=== PATIENT | female | born 1940 | race Caucasian/White ===

== ENCOUNTER 2021-10-10 21:27 | Inpatient (IN) | payer MEDICARE, BC ==
[~2021-10-10] VITALS: Ht 170.2 cm; Wt 65.8 kg
[~2021-10-10 21:27] MED LIST: ACET-868 PO; ACID1TAB12 PO; ALPR0.5T8 PO; ASPI-1169 PO; DONE5TAB34 PO; OMEP40CA21 PO; SIMV-49 PO; ZOLP5TAB8 PO
--- NOTE | 2021-10-10 21:32 | NUR ---
PT BIBRA FROM HOME C/O VOMITTING & DIARRHEA X2 HOURS AND TACHYCARDIA RATE: 186. PT A/OX4. TOLERATING R/A WELL WITH NO SOB. CONNECTED PT TO POX AND MONITOR.
[2021-10-10] MEDS ORDERED: ONDANSETRON HCL/PF 4 MG/2 ML VIAL ONE (21:45)
--- NOTE | 2021-10-10 21:50 | NUR ---
R HAND #20G S/L; PATENT AND INTACT. BLOOD COLLECTED AND SENT TO LAB
[2021-10-10] MEDS ORDERED: IV NS 0.9% 1,000 ML BAG IV ONE ×2 (22:00→22:30)
[2021-10-10] MEDS ORDERED: ONDANSETRON HCL/PF 4 MG/2 ML VIAL IVP ONE (22:00)
[2021-10-10 22:18] LABS: BASOPHILS % (AUTO) 0.3 % (0.0-2.0); EOSINOPHILS % (AUTO) 0.7 % (0.0-6.0); HEMATOCRIT 41 % (33-45); LYMPHOCYTES # (AUTO) 1.1 K/uL (0.8-4.8); LYMPHOCYTES % (AUTO) 9.9 % (20.0-44.0); MEAN CORPUSCULAR HGB CONC 32 g/dl (31.0-36.0); MEAN CORPUSCULAR VOLUME 84 fL (82-100); MONOCYTES # (AUTO) 0.5 K/uL (0.1-1.30); MONOCYTES % (AUTO) 4.9 % (2.0-12.0); NEUTROPHILS % (AUTO) 84.2 % (43.0-81.0); PLATELET COUNT (AUTO) 282 K/uL (150-450); RED BLOOD CELL COUNT(AUTO) 4.85 MIL/uL (4.0-5.2); WHITE BLOOD COUNT (AUTO) 10.7 K/uL (4.3-11.0)
[2021-10-10] MEDS ORDERED: ADENOSINE 6 MG/2 ML VIAL ONE ×2 (22:19→22:24)
[2021-10-10] MEDS ORDERED: AMIODARONE 150 MG in IV D5W 100 ML IV ONE (22:30)
[2021-10-10] MEDS ORDERED: ADENOSINE 6 MG/2 ML VIAL IVP ONE ×2 (22:30)
[2021-10-10] MEDS ORDERED: AMIODARONE 450 MG in IV D5W 241 ML IV PRN (22:30)
[2021-10-10] MEDS ORDERED: AMIODARONE 150 MG/3 ML VIAL IV ONE ×3 (22:33→23:12)
--- NOTE | 2021-10-10 22:40 | NUR ---
URINE COLLECTED AND SENT TO LAB
--- NOTE | 2021-10-10 22:52 | NUR ---
COVID ANTIGEN SWAB COLLECTED AND SENT TO LAB
[2021-10-10] MEDS ORDERED: ONDANSETRON HCL/PF 4 MG/2 ML VIAL IV ONE (23:00)
[2021-10-10 23:05] LABS: ALANINE AMINOTRANSFERASE 40 U/L (12-78); ALKALINE PHOSPHATASE 83 U/L (46-116); ASPARTATE AMINOTRANSFERASE 42 U/L (15-37); BILIRUBIN,DIRECT 0.1 mg/dL (0.0-0.2); CALCIUM, SERUM 8.9 mg/dL (8.5-10.1); CARBON DIOXIDE 20 mmol/L (21-32); CHLORIDE 103 mmol/L (98-107); CREATININE 0.9 mg/dL (0.6-1.3); GLUCOSE 120 mg/dL (74-106); LIPASE 72 U/L (73-393); POTASSIUM 4.1 mmol/L (3.5-5.1); SODIUM SERUM 138 mmol/L (136-145); TOTAL PROTEIN, SERUM 7.3 g/dL (6.4-8.2); UREA NITROGEN, BLOOD 10 mg/dL (7-18)
[2021-10-10 23:20] LABS: ALBUMIN 3.2 g/dL (3.4-5.0); BILIRUBIN,TOTAL 0.4 mg/dL (0.2-1.0)
--- NOTE | 2021-10-10 23:22 | NUR ---
HR 95; PER DR SRINIVASAN HOLD AMIO IV DRIP FOR NOW.
--- NOTE | 2021-10-10 23:23 | NUR ---
S/P AMIO IVP ORDERED. HR 95. PER DR. SRINIVASAN PT IS TELE. NOTIFIED RN EDI ARCHITECT
[2021-10-10 23:25] LABS: BILIRUBIN,URINE NEGATIVE (NEGATIVE); COLOR,URINE YELLOW (YELLOW); LEUKOCYTE ESTERASE ,URINE NEGATIVE (NEGATIVE); NITRITE, URINE NEGATIVE (NEGATIVE); PROTEIN,URINE 100 mg/dl (NEGATIVE); UGLUCOSE NEGATIVE (NEGATIVE); UROBILINOGEN,URINE 0.2 EU/dL (0.2)
[2021-10-10 23:41] LABS: BACTERIA,URINE Few /HPF (None Seen); CALCIUM OXALATE CRYSTALS,UR Many /HPF (None Seen); RBC,URINE 0-2 /HPF (0-2); SQUAMOUS EPITHELIAL CELL,UR Few /HPF (None Seen)
[2021-10-10 23:42] LABS: COARSE GRANULAR CASTS,URINE Few /LPF (None Seen); MUCUS,URINE Few /LPF (None Seen)
[2021-10-11] MEDS ORDERED: MAGNESIUM HYDROXIDE 30 ML UDC PO PRN (02:00)
[2021-10-11] MEDS ORDERED: MAG HYDROX/AL HYDROX/SIMETH 30 ML UDC PO PRN (02:00)
[2021-10-11] MEDS ORDERED: Z GUARD REMEDY 4 OZ OINT TP PRN (02:00)
[2021-10-11] MEDS ORDERED: ACETAMINOPHEN 325 MG TABLET PO PRN (02:00)
[2021-10-11] MEDS ORDERED: ZOLPIDEM TARTRATE 5 MG TABLET PO PRN (02:00)
[2021-10-11] MEDS ORDERED: ONDANSETRON HCL/PF 4 MG/2 ML VIAL IVP PRN (02:00)
--- NOTE | 2021-10-11 04:40 | NUR ---
PTY IN BED RESTING WITH EYES CLOSE. BREATHING EVEN AND UNLABORED. NO DISTRESS
[2021-10-11 05:00] LABS: BASOPHILS % (AUTO) 0.4 % (0.0-2.0); EOSINOPHILS % (AUTO) 0.2 % (0.0-6.0); HEMATOCRIT 35 % (33-45); HEMOGLOBIN 11.2 g/dL (11.5-14.8); LYMPHOCYTES # (AUTO) 0.7 K/uL (0.8-4.8); LYMPHOCYTES % (AUTO) 10.9 % (20.0-44.0); MEAN CORPUSCULAR HGB CONC 32 g/dl (31.0-36.0); MEAN CORPUSCULAR VOLUME 83 fL (82-100); MONOCYTES # (AUTO) 0.3 K/uL (0.1-1.30); MONOCYTES % (AUTO) 4.1 % (2.0-12.0); NEUTROPHILS # (AUTO) 5.4 K/uL (1.8-8.9); NEUTROPHILS % (AUTO) 84.4 % (43.0-81.0); PLATELET COUNT (AUTO) 257 K/uL (150-450); RED BLOOD CELL COUNT(AUTO) 4.21 MIL/uL (4.0-5.2); WHITE BLOOD COUNT (AUTO) 6.4 K/uL (4.3-11.0)
[2021-10-11 05:34] LABS: ALANINE AMINOTRANSFERASE 37 U/L (12-78); ALBUMIN 2.9 g/dL (3.4-5.0); ALKALINE PHOSPHATASE 71 U/L (46-116); ASPARTATE AMINOTRANSFERASE 26 U/L (15-37); BILIRUBIN,TOTAL 0.5 mg/dL (0.2-1.0); CALCIUM, SERUM 7.9 mg/dL (8.5-10.1); CARBON DIOXIDE 24 mmol/L (21-32); CHLORIDE 105 mmol/L (98-107); CREATININE 0.8 mg/dL (0.6-1.3); GLUCOSE 125 mg/dL (74-106); PHOSPHORUS 3.6 mg/dL (2.5-4.9); POTASSIUM 4.1 mmol/L (3.5-5.1); SODIUM SERUM 140 mmol/L (136-145); TOTAL PROTEIN, SERUM 6.4 g/dL (6.4-8.2); UREA NITROGEN, BLOOD 19 mg/dL (7-18)
--- NOTE | 2021-10-11 06:49 | NUR ---
DR COREA IS AT BEDSIDE. TROPONIN OF 0.[address] COREA WELL
[2021-10-11] MEDS ORDERED: MEMA5TAB42 PO (06:52)
[2021-10-11] MEDS ORDERED: PENT400T17 PO (06:52)
[2021-10-11] MEDS ORDERED: METO25TA20 PO (06:52)
[2021-10-11] MEDS ORDERED: CYCL5TAB PO (06:52)
[2021-10-11] MEDS ORDERED: FURO20TA4 PO (06:52)
[2021-10-11] MEDS ORDERED: APIX5TAB PO (06:52)
[2021-10-11] MEDS ORDERED: LEVO100T9 PO (06:52)
[2021-10-11] MEDS ORDERED: LORA-258 PO (06:56)
[2021-10-11] MEDS ORDERED: PANTOPRAZOLE 40 MG TABLET.DR PO SCH (07:30)
[2021-10-11] MEDS ORDERED: ENOXAPARIN SODIUM 40 MG/0.4 ML DISP.SYRIN SQ SCH (08:00)
[2021-10-11] MEDS ORDERED: PANTOPRAZOLE 40 MG TABLET.DR PO ONE (08:18)
[2021-10-11] MEDS ORDERED: ENOXAPARIN SODIUM 40 MG/0.4 ML DISP.SYRIN SQ ONE (08:18)
[2021-10-11] MEDS: PANTOPRAZOLE 40 MG TABLET.DR PO SCH (08:20)
[2021-10-11] MEDS ORDERED: NITROGLYCERIN 0.4 MG/TAB BOTTLE ONE (09:38)
[2021-10-11] MEDS ORDERED: METOPROLOL TARTRATE INJ 5 MG/5 ML AMPUL ONE (09:38)
[2021-10-11] MEDS ORDERED: IOHEXOL-350 100 ML VIAL IV ONE (09:38)
[2021-10-11] MEDS ORDERED: IV NS 0.9% 250 ML IV ONE (09:39)
[2021-10-11] MEDS ORDERED: CT SWABBABLE VALVE TRANS SET 1 EA INFUS.SET MC ONE (09:39)
--- NOTE | 2021-10-11 09:57 | NUR ---
TAKEN TO CT
--- NOTE | 2021-10-11 10:23 | NUR ---
RN NOTES; Post CTA done: Patient able to tolerate the procedure no distress noted. Metoprolol 5mg IVP given x1. Patient sent back to patient room in stable condition.
[2021-10-11] MEDS ORDERED: METOPROLOL TARTRATE INJ 5 MG/5 ML AMPUL IVP PRN (10:30)
[2021-10-11] MEDS ORDERED: NITROGLYCERIN 0.4 MG/TAB BOTTLE SL ONE (10:30)
[2021-10-11] MEDS ORDERED: LEVOTHYROXINE SODIUM 100 MCG TABLET ONE (11:24)
[2021-10-11] MEDS ORDERED: AMIODARONE HCL 200 MG TABLET ONE (11:24)
[2021-10-11] MEDS: PENTOXIFYLLINE 400 MG TABLET.SA PO SCH (11:25)
[2021-10-11] MEDS: AMIODARONE HCL 200 MG TABLET PO SCH ×2 (11:25→18:03)
[2021-10-11] MEDS: LEVOTHYROXINE SODIUM 100 MCG TABLET PO SCH (11:25)
[2021-10-11] MEDS: IV NS 0.9% 1,000 ML IV PRN ×2 (11:31→23:19)
--- NOTE | 2021-10-11 11:56 | NUR ---
TROPONIN 0.605; NOTIFIED DR. MANNING
--- NOTE | 2021-10-11 16:03 | NUR ---
CALLED 3W; AWAITING TO GIVE REPORT TO DOROTHY
--- NOTE | 2021-10-11 16:24 | NUR ---
REPORT GIVEN TO PHONG DUMONT FOR DONNIE
--- NOTE | 2021-10-11 16:42 | NUR ---
PT TRANSFERRED TO 311-2 VIA ACLS PROTOCOL. VSS. ALL BELONGINGS AT PT'S BESIDE
--- NOTE | 2021-10-11 16:45 | NUR ---
FACILITIES MAINTENANCE WORKER OPENING NOTES RECEIVED PATIENT WITH MARTÍNEZJOHN FROM ER. ALERT AND ORIENTED TIMES 4. NO PAIN NOTED. NO RESPIRATORY DISTRESS NOTED. EVEN AND UNLABORED BREATHS. SKIN INTACT. IV ACCESS ON THE LEFT HAND #20 INTACT. VITAL SIGNS WITHIN NORMAL RANGES. WILL CONTINUE TO MONITOR THE PATIENT.
[2021-10-11] MEDS ORDERED: MEMANTINE HCL 5 MG TABLET PO SCH (18:00)
--- NOTE | 2021-10-11 19:00 | NUR ---
HAND CELL TUBER CLOSING NOTES: PATIENT AWAKE IN BED. ALERT AND ORIENTED TIMES 4. NO PAIN NOTED. NO RESPIRATORY DISTRESS NOTED. EVEN AND UNLABORED BREATHS. SKIN INTACT. IV ACCESS ON THE LEFT HAND #20 INTACT. ON IV HYDRATION OF NS @200 ML/HR .VITAL SIGNS WITHIN NORMAL RANGES.DUE MEDS GIVEN ORDERED.ON TELE MONITORING . BED LOCKED IN THE LOWEST POSITION. CALL LIGHT AND TABLE WITHIN REACH. WILL ENDORSE INCOMING SHIFT FOR DONNIE.
[2021-10-11 20:00] VITALS: BP 94/58
--- NOTE | 2021-10-11 20:00 | NUR ---
RECEIVED in bed alert and orientted X$ IV was out removed by the patient accidently restarted right hand g 20 talkative about family and her life in good spirits amnbulated to the bathroom nurse as standby assist steady on her legs
[2021-10-11] MEDS ORDERED: ENOXAPARIN SODIUM 60 MG/0.6 ML DISP.SYRIN SQ SCH (21:00)
[2021-10-11 23:57] VITALS: BP 124/82
[2021-10-12 04:00] VITALS: BP 119/61
--- NOTE | 2021-10-12 04:41 | NUR ---
closing notes: Alert and orientated x4 cheerful and cooperTIVE FIRST iv SHE ACCIDENTLY PULLED OUT 2ND iv NOTED SHE IS CARELESS WHEN GOING TO THE BATHROOM AND MOVING ABOUT IN THE BED WITH THE IV AT 04:30 IV INFUSION STOPPED SHE INDICATED SHE WANTED TO SLEEP AND START THE IV LATER SHE IS VOIDING FREQ. AND THE IV WAS INFUSING AT 200 ML HR NO NAUSES THIS SHIFT NO DIARRHEA THIS SHIFT AND THE CARDIAC MONITER SHOWS NSR
[2021-10-12 07:17] LABS: BASOPHILS % (AUTO) 0.8 % (0.0-2.0); EOSINOPHILS % (AUTO) 1.3 % (0.0-6.0); HEMATOCRIT 30 % (33-45); HEMOGLOBIN 9.8 g/dL (11.5-14.8); LYMPHOCYTES # (AUTO) 1.2 K/uL (0.8-4.8); LYMPHOCYTES % (AUTO) 25.1 % (20.0-44.0); MEAN CORPUSCULAR HGB CONC 32 g/dl (31.0-36.0); MEAN CORPUSCULAR VOLUME 83 fL (82-100); MONOCYTES # (AUTO) 0.5 K/uL (0.1-1.30); MONOCYTES % (AUTO) 11.4 % (2.0-12.0); NEUTROPHILS # (AUTO) 2.9 K/uL (1.8-8.9); NEUTROPHILS % (AUTO) 61.4 % (43.0-81.0); PLATELET COUNT (AUTO) 218 K/uL (150-450); RED BLOOD CELL COUNT(AUTO) 3.64 MIL/uL (4.0-5.2); WHITE BLOOD COUNT (AUTO) 4.7 K/uL (4.3-11.0)
[2021-10-12 07:31] LABS: ALBUMIN 2.5 g/dL (3.4-5.0); BILIRUBIN,TOTAL 0.2 mg/dL (0.2-1.0); CALCIUM, SERUM 7.8 mg/dL (8.5-10.1); CREATININE 0.6 mg/dL (0.6-1.3); MAGNESIUM 1.8 mg/dL (1.8-2.4); POTASSIUM 3.7 mmol/L (3.5-5.1); TOTAL PROTEIN, SERUM 5.7 g/dL (6.4-8.2)
[2021-10-12 08:00] VITALS: BP 156/90
--- NOTE | 2021-10-12 08:00 | NUR ---
RN Opening Note Patient received in bed, AO x 4, able to responds all stimuli. Skin is warm to touch, keep clean/dry, intact IV site. Respiratory even and unlabored on room air. Kept elevated HOB for ensure air ,aspiration precaution and remains lower position of the bed. call light within reach, will continue to monitor.
[2021-10-12] MEDS: LEVOTHYROXINE SODIUM 100 MCG TABLET PO SCH (08:42)
[2021-10-12] MEDS: AMIODARONE HCL 200 MG TABLET PO SCH (08:43)
[2021-10-12] MEDS: PENTOXIFYLLINE 400 MG TABLET.SA PO SCH (08:43)
[2021-10-12] MEDS: PANTOPRAZOLE 40 MG TABLET.DR PO SCH (08:44)
[2021-10-12] MEDS ORDERED: APIXABAN 5 MG TABLET PO SCH (09:00)
[2021-10-12] MEDS ORDERED: ATORVASTATIN 40 MG TABLET PO SCH (09:00)
[2021-10-12 10:41] LABS: CHOLESTEROL 113 mg/dL (<200); HDL CHOLESTEROL 38 mg/dL (40-60); LDL 59 mg/dL (0-99); TRIGLYCERIDES 117 mg/dL (30-150)
[2021-10-12 12:00] VITALS: BP 131/79
--- NOTE | 2021-10-12 12:00 | NUR ---
Patient d/c to home, given discharge instruction include continue to home meds, follow up primary MD. Patient denies pain or distress, in stale condition. Left facility accompanied by staff to the private car. Signed belongings and discharge instruction.
== END 2021-10-12 12:10 | disposition home or self-care (01) | DRG 280 ==
LOC: ER 21:47 → TRANSITION 10-11 07:06 → TELE 10-11 13:59
PROVIDERS: ADMIT Internal Medicine; ATTEND Internal Medicine
DX: I47.1 Supraventricular tachycardia (principal); I21.4 Non-ST elevation (NSTEMI) myocardial infarction; E43 Unspecified severe protein-calorie malnutrition; N17.9 Acute kidney failure, unspecified; E87.2 Acidosis; G93.49 Other encephalopathy; I48.91 Unspecified atrial fibrillation; K52.9 Noninfective gastroenteritis and colitis, unspecified; Z79.82 Long term (current) use of aspirin; Z79.899 Other long term (current) drug therapy; E86.0 Dehydration; I70.0 Atherosclerosis of aorta; K44.9 Diaphragmatic hernia without obstruction or gangrene; M19.90 Unspecified osteoarthritis, unspecified site; F41.9 Anxiety disorder, unspecified; E78.5 Hyperlipidemia, unspecified; E03.9 Hypothyroidism, unspecified; I49.9 Cardiac arrhythmia, unspecified
CPT/HCPCS: 36415; 71045-TC; 75574; 80048-TC; 80053-TC; 80061-TC; 80076-TC; 81001; 83690-TC; 83735-TC; 84100-TC; 84443-TC; 84484-TC; 85025-TC; 87081-TC; 93307-TC; C9803; G0378; J0153; J0282; J1650; J2405; J3490; J7030; J7040; J7050; J7060; Q9967